=== PATIENT | female | born 1965 | race Caucasian/White ===

== ENCOUNTER 2017-07-22 17:40 | Emergency (ER) | payer BC ==
[~2017-07-22] VITALS: Ht 167.6 cm; Wt 57.0 kg
[2017-07-22 17:56] VITALS: BP 135/84; PULSE 72; RESP 18; TEMP 97.9; O2SAT 100
[2017-07-22 18:02] VITALS: BP 135/84; PULSE 68; RESP 18; O2SAT 100
[2017-07-22] MEDS ORDERED: SODIUM CHLORIDE 0.9% FLUSH 10 ML FLUSH IVF PRN (18:15)
[2017-07-22] MEDS ORDERED: SODIUM CHLORID 0.9% 500 ML INJ 500 ML IV ONE (18:15)
[2017-07-22 18:17] VITALS: O2SAT 100
--- NOTE | 2017-07-22 18:44 | RADRPT ---
EXAM DATE/TIME: 07/22/2017 18:19 [facility] COMPARISON: No previous studies available for comparison. INDICATIONS : Chest pain. MEDICAL HISTORY : None. SURGICAL HISTORY : Defibrillator. ENCOUNTER: Initial ACUITY: 1 day PAIN SCORE: 8/10 LOCATION: Bilateral chest FINDINGS: The heart is at the upper limits of normal in size. There is a transvenous pacer in place. The lungs are clear. The visualized osseous structures are grossly intact. CONCLUSION: 1. Mild cardiomegaly. No acute abnormality. Jose Odonnell MD on July 22, 2017 at 18:42 Board Certified Radiologist. This report was verified electronically.
[2017-07-22 18:51] VITALS: BP_SYST 122; BP_SYST 123; BP_DIAS 70; BP_DIAS 77; PULSE 71; RESP 18; O2SAT 99
[2017-07-22] MEDS ORDERED: ADENOSINE IV SOLN 3 MG/ML 2 ML VIAL ONE (19:23)
[2017-07-22 19:25] VITALS: BP 135/86; PULSE 162; RESP 20; O2SAT 95
[2017-07-22] MEDS ORDERED: LORazepam 2 MG/ML VIAL ONE (19:26)
[2017-07-22 19:27] LABS: AUTOMATED NEUTROPHIL # 2.5 TH/MM3 (1.8-7.7); BASOPHIL % 0.4 % (0.0-2.0); EOSINOPHIL % 1.1 % (0.0-4.0); HEMATOCRIT 39.1 % (35.0-46.0); HEMOGLOBIN 13.2 GM/DL (11.6-15.3); LYMPH % 34.7 % (9.0-44.0); LYMPHOCYTE # 1.5 TH/MM3 (1.0-4.8); MEAN CORPUSCULAR HEMOGLOBIN 32.1 PG (27.0-34.0); MEAN CORPUSCULAR HGB CONC 33.8 % (32.0-36.0); MONO % 6.4 % (0.0-8.0); MONOCYTE # 0.3 TH/MM3 (0-0.9); NEUT % 57.4 % (16.0-70.0); PLATELET COUNT 157 TH/MM3 (150-450); RED BLOOD COUNT 4.11 MIL/MM3 (4.00-5.30); RED CELL DISTRIBUTION WIDTH 13.3 % (11.6-17.2); WHITE BLOOD COUNT 4.4 TH/MM3 (4.0-11.0)
[2017-07-22] MEDS ORDERED: ONDANSETRON HCL 4 MG/2 ML VIAL ONE (19:27)
[2017-07-22] MEDS ORDERED: LORazepam 2 MG/ML VIAL IV PUSH ONE (19:30)
[2017-07-22] MEDS ORDERED: SODIUM CHLOR 0.9% 1000 ML INJ 1,000 ML IV ONE (19:30)
[2017-07-22 19:34] VITALS: BP 133/82; PULSE 76; RESP 16; O2SAT 100
--- NOTE | 2017-07-22 19:39 | PD ---
HPI Chief Complaint: Chest Pain Time Seen by Provider: 18:10 Travel History International Travel<30 days: No Contact w/Intl Traveler<30days: No Traveled to known affect area: No History of Present Illness HPI Patient is a 52-year-old female presenting to the emergency department for evaluation of a near syncopal episode. Patient states that she became lightheaded, dizzy, developed lower left-sided chest pain. She started to feel nauseous and short of breath. She states that a friend helped her into a chair and then her later on the ground. She was unable to lift her head. 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 Patient is currently followed at the [facility]. She currently reports her pain is a 2 out of 10, she was given 324 of aspirin by EMS. Patient states her defibrillator has never fired. She reports daily episodes of V. tach. Patient additionally stated that a JOSÉ MIGUEL in April found a clot on the defibrillator wire, she took blood thinners for 1 month and stated that they would reassess the clot in August. Her defibrillator was last evaluated 1 month ago. Symptom onset is sudden, symptom severity is severe. There are no alleviating factors. There is not appear to be any distinct aggravating factors as well. PFSH Past Medical History Cardiovascular Problems: Yes (hyptrophic cardiomyopathy) Diminished Hearing: No Medical other: Yes (defibrillator-[employer]) ?: Not LMP: today : 3 Para: 3 Social History Alcohol Use: Yes (wine) Tobacco Use: No Substance Use: No Allergies-Medications (Allergen,Severity, Reaction): Coded Allergies: ceftriaxone (Verified Allergy, Intermediate, rash, 07/22/17) Reported Meds & Prescriptions Reported Meds & Active Scripts Active Toprol XL (Metoprolol Succinate) 25 Mg Tab 25 Mg PO DAILY Review of Systems Except as stated in HPI: all other systems reviewed are Neg HENT: Positive: Lightheadedness Cardiovascular: Positive: Palpitations, Tachycardia Respiratory: Positive: Shortness of Breath Gastrointestinal: Positive: Nausea Neurologic: Positive: Dizziness Physical Exam Narrative GENERAL: Well-developed, well-nourished, alert female. Presenting in no acute distress. SKIN: Warm and dry. HEAD: Atraumatic. Normocephalic. EYES: Pupils equal and round. No scleral icterus. No injection or drainage. ENT: No nasal bleeding or discharge. Mucous membranes pink and moist. NECK: Trachea midline. No JVD. CARDIOVASCULAR: Regular rate and rhythm. RESPIRATORY: No accessory muscle use. Clear to auscultation. Breath sounds equal bilaterally. GASTROINTESTINAL: Abdomen soft, non-tender, nondistended. Hepatic and splenic margins not palpable. MUSCULOSKELETAL: Extremities without clubbing, cyanosis, or edema. No obvious deformities. NEUROLOGICAL: Awake and alert. No obvious cranial nerve deficits. Motor grossly within normal limits. Five out of 5 muscle strength in the arms and legs. Normal speech. PSYCHIATRIC: Appropriate mood and affect; insight and judgment normal. Data Data Last Documented VS Vital Signs Date Time Temp Pulse Resp B/P (MAP) Pulse Ox O2 Delivery O2 Flow Rate FiO2 07/22/17 22:16 07/22/17 19:34 76 16 100 Non-Rebreather 12.00 07/22/17 17:56 97.9 Orders Orders Electrocardiogram (07/22/17 18:10) Ckmb (Isoenzyme) Profile (07/22/17 18:10) Complete Blood Count With Diff (07/22/17 18:10) Comprehensive Metabolic Panel (07/22/17 18:10) Magnesium (Mg) (07/22/17 18:10) Prothrombin Time / Inr (Pt) (07/22/17 18:10) Act Partial Throm Time (Ptt) (07/22/17 18:10) Troponin I (07/22/17 18:10) Chest, Single Ap (07/22/17 18:10) Ecg Monitoring (07/22/17 18:10) Bilateral Bp Monitoring (07/22/17 18:10) Iv Access Insert/Monitor (07/22/17 18:10) Oximetry (07/22/17 18:10) Oxygen Administration (07/22/17 18:10) Sodium Chloride 0.9% Flush (Ns Flush) (07/22/17 18:15) Sodium Chlorid 0.9% 500 Ml Inj (Ns 500 M (07/22/17 18:15) Thyroid Stimulating Hormone (07/22/17 18:10) Adenosine Inj (Adenocard Inj) (07/22/17 19:23) Ct Pulmonary Angiogram (07/22/17 ) Lorazepam Inj (Ativan Inj) (07/22/17 19:30) Sodium Chlor 0.9% 1000 Ml Inj (Ns 1000 M (07/22/17 19:30) Lorazepam Inj (Ativan Inj) (07/22/17 19:26) Ondansetron Inj (Zofran Inj) (07/22/17 19:27) Electrocardiogram (07/22/17 19:30) Ed Discharge Order (07/22/17 21:40) Metoprolol Succinate Er (Toprol Xl) (07/22/17 21:45) Iohexol 350 Inj (Omnipaque 350 Inj) (07/22/17 21:58) Labs Laboratory Tests Test 07/22/17 18:40 White Blood Count 4.4 TH/MM3 Red Blood Count 4.11 MIL/MM3 Hemoglobin 13.2 GM/DL Hematocrit 39.1 % Mean Corpuscular Volume 95.0 FL Mean Corpuscular Hemoglobin 32.1 PG Mean Corpuscular Hemoglobin Concent 33.8 % Red Cell Distribution Width 13.3 % Platelet Count 157 TH/MM3 Mean Platelet Volume 10.0 FL Neutrophils (%) (Auto) 57.4 % Lymphocytes (%) (Auto) 34.7 % Monocytes (%) (Auto) 6.4 % Eosinophils (%) (Auto) 1.1 % Basophils (%) (Auto) 0.4 % Neutrophils # (Auto) 2.5 TH/MM3 Lymphocytes # (Auto) 1.5 TH/MM3 Monocytes # (Auto) 0.3 TH/MM3 Eosinophils # (Auto) 0.0 TH/MM3 Basophils # (Auto) 0.0 TH/MM3 CBC Comment DIFF FINAL Differential Comment Prothrombin Time 11.1 SEC Prothromb Time International Ratio 1.1 RATIO Activated Partial Thromboplast Time 23.1 SEC Blood Urea Nitrogen 9 MG/DL Creatinine 0.66 MG/DL Random Glucose 106 MG/DL Total Protein 6.7 GM/DL Albumin 3.8 GM/DL Calcium Level 9.0 MG/DL Magnesium Level 2.0 MG/DL Alkaline Phosphatase 52 U/L Aspartate Amino Transf (AST/SGOT) 19 U/L Alanine Aminotransferase (ALT/SGPT) 19 U/L Total Bilirubin 0.3 MG/DL Sodium Level 142 MEQ/L Potassium Level 3.4 MEQ/L Chloride Level 109 MEQ/L Carbon Dioxide Level 22.8 MEQ/L Anion Gap 10 MEQ/L Estimat Glomerular Filtration Rate 94 ML/MIN Total Creatine Kinase 76 U/L Troponin I 0.08 NG/ML Thyroid Stimulating Hormone 3rd Gen 4.290 uIU/ML MDM Medical Decision Making Medical Screen Exam Complete: Yes Emergency Medical Condition: Yes Interpretation(s) Vital Signs Date Time Temp Pulse Resp B/P (MAP) Pulse Ox O2 Delivery O2 Flow Rate FiO2 07/22/17 18:51 71 18 123/77 (92) 99 Room Air 122/70 (87) 07/22/17 18:17 100 Room Air 07/22/17 18:17 100 Room Air 07/22/17 18:02 68 18 135/84 (101) 100 Room Air 07/22/17 17:56 97.9 72 18 135/84 (101) 100 Differential Diagnosis Cardiac arrhythmia versus metabolic abnormality versus ACS versus other Narrative Course Patient is a 52-year-old female presenting to the emergency room for evaluation after a near syncopal episode likely related to cardiac arrhythmia. Patient has an implanted fibular pacemaker through [employer]. Theatrical Trouper was called to interrogate. Labs and imaging ordered and pending. Initial EKG shows normal sinus rhythm with left ventricular hypertrophy/strain this was reviewed by my attending physician. 1919 patient began to have rapid heart rate into the 170s, EKG was performed, my attending physician as well as myself was at bedside. Heart rate trended down on its own without pharmacological intervention. Patient was given 1 L of IV fluids, milligram of Ativan. CT pulmonary angiogram ordered. Please see my attending physician's documentation for complete plan of care for patient. He assumed care of this patient, he spoke with patient's police officer booking at the [facility]. Scripts Metoprolol Succinate ER 24 HR (Toprol XL) 25 Mg Tab 25 MG PO DAILY, #30 TAB 0 Refills Prov: Juan Escobedo MD 07/22/17 Anastacia Rene Jul 22, 2017 19:39
[2017-07-22 19:52] LABS: INTERNATIONAL NORMALIZED RATIO 1.1 RATIO; PROTHROMBIN TIME - PATIENT 11.1 SEC (9.8-11.6)
[2017-07-22 19:56] LABS: ALBUMIN 3.8 GM/DL (3.4-5.0); AST (GOT) 19 U/L (15-37); BICARBONATE 22.8 MEQ/L (21.0-32.0); BLOOD UREA NITROGEN 9 MG/DL (7-18); CHLORIDE 109 MEQ/L (98-107); CREATININE 0.66 MG/DL (0.50-1.00); GLOMERULAR FILTRATION RATE 94 ML/MIN (>89); GLUCOSE,RANDOM 106 MG/DL (74-106); SODIUM (NA) 142 MEQ/L (136-145)
[2017-07-22 19:58] LABS: ALT (GPT) 19 U/L (10-53)
[2017-07-22 20:08] LABS: ALKALINE PHOSPHATASE 52 U/L (45-117); TOTAL BILIRUBIN ADULT 0.3 MG/DL (0.2-1.0); TOTAL PROTEIN 6.7 GM/DL (6.4-8.2); TROPONIN I 0.08 NG/ML (0.02-0.05)
[2017-07-22] MEDS ORDERED: TOPR25TA PO (21:44)
--- NOTE | 2017-07-22 21:44 | PD ---
Data Data Last Documented VS Vital Signs Date Time Temp Pulse Resp B/P (MAP) Pulse Ox O2 Delivery O2 Flow Rate FiO2 07/22/17 22:16 07/22/17 19:34 76 16 100 Non-Rebreather 12.00 07/22/17 17:56 97.9 Orders Orders Electrocardiogram (07/22/17 18:10) Ckmb (Isoenzyme) Profile (07/22/17 18:10) Complete Blood Count With Diff (07/22/17 18:10) Comprehensive Metabolic Panel (07/22/17 18:10) Magnesium (Mg) (07/22/17 18:10) Prothrombin Time / Inr (Pt) (07/22/17 18:10) Act Partial Throm Time (Ptt) (07/22/17 18:10) Troponin I (07/22/17 18:10) Chest, Single Ap (07/22/17 18:10) Ecg Monitoring (07/22/17 18:10) Bilateral Bp Monitoring (07/22/17 18:10) Iv Access Insert/Monitor (07/22/17 18:10) Oximetry (07/22/17 18:10) Oxygen Administration (07/22/17 18:10) Sodium Chloride 0.9% Flush (Ns Flush) (07/22/17 18:15) Sodium Chlorid 0.9% 500 Ml Inj (Ns 500 M (07/22/17 18:15) Thyroid Stimulating Hormone (07/22/17 18:10) Adenosine Inj (Adenocard Inj) (07/22/17 19:23) Ct Pulmonary Angiogram (07/22/17 ) Lorazepam Inj (Ativan Inj) (07/22/17 19:30) Sodium Chlor 0.9% 1000 Ml Inj (Ns 1000 M (07/22/17 19:30) Lorazepam Inj (Ativan Inj) (07/22/17 19:26) Ondansetron Inj (Zofran Inj) (07/22/17 19:27) Electrocardiogram (07/22/17 19:30) Ed Discharge Order (07/22/17 21:40) Metoprolol Succinate Er (Toprol Xl) (07/22/17 21:45) Iohexol 350 Inj (Omnipaque 350 Inj) (07/22/17 21:58) Labs Laboratory Tests Test 07/22/17 18:40 White Blood Count 4.4 TH/MM3 Red Blood Count 4.11 MIL/MM3 Hemoglobin 13.2 GM/DL Hematocrit 39.1 % Mean Corpuscular Volume 95.0 FL Mean Corpuscular Hemoglobin 32.1 PG Mean Corpuscular Hemoglobin Concent 33.8 % Red Cell Distribution Width 13.3 % Platelet Count 157 TH/MM3 Mean Platelet Volume 10.0 FL Neutrophils (%) (Auto) 57.4 % Lymphocytes (%) (Auto) 34.7 % Monocytes (%) (Auto) 6.4 % Eosinophils (%) (Auto) 1.1 % Basophils (%) (Auto) 0.4 % Neutrophils # (Auto) 2.5 TH/MM3 Lymphocytes # (Auto) 1.5 TH/MM3 Monocytes # (Auto) 0.3 TH/MM3 Eosinophils # (Auto) 0.0 TH/MM3 Basophils # (Auto) 0.0 TH/MM3 CBC Comment DIFF FINAL Differential Comment Prothrombin Time 11.1 SEC Prothromb Time International Ratio 1.1 RATIO Activated Partial Thromboplast Time 23.1 SEC Blood Urea Nitrogen 9 MG/DL Creatinine 0.66 MG/DL Random Glucose 106 MG/DL Total Protein 6.7 GM/DL Albumin 3.8 GM/DL Calcium Level 9.0 MG/DL Magnesium Level 2.0 MG/DL Alkaline Phosphatase 52 U/L Aspartate Amino Transf (AST/SGOT) 19 U/L Alanine Aminotransferase (ALT/SGPT) 19 U/L Total Bilirubin 0.3 MG/DL Sodium Level 142 MEQ/L Potassium Level 3.4 MEQ/L Chloride Level 109 MEQ/L Carbon Dioxide Level 22.8 MEQ/L Anion Gap 10 MEQ/L Estimat Glomerular Filtration Rate 94 ML/MIN Total Creatine Kinase 76 U/L Troponin I 0.08 NG/ML Thyroid Stimulating Hormone 3rd Gen 4.290 uIU/ML [facility] Supervised Visit with MABLE: Yes Narrative Course Patient had an episode in the emergency department where I watched her heart rate gradually climb from 80 up to 170, she was very anxious during this time and felt like she was going to pass out. Her blood pressure was acceptable at 130/80 while her heart rate was in the 170s. An EKG was performed unfortunately was misplaced and found again which did show that she was in sinus tachycardia. After her pacemaker was interrogated actually showed that she was in slow V. tach at 140 beats minute exactly time with this EKG was done. Quite possible that she has 2 components of arrhythmia both ventricular tachycardia and a sinus tachycardia/SVT. Her troponin is weakly positive and she has a history of congenital cardiomyopathy. The patient's event corrected with normal saline and Ativan, her entire case was discussed with her rock splitter Dr. Kirkpatrick at [facility]. I discussed that she has T-wave inversions in V4 through V6 as well as is minimally positive troponin and he states that likely this is all chronic from her. She has not had any chest pain at rest, she is feeling much better. All things considered and ask after an extensive conversation with Dr. Kirkpatrick he is recommended that the patient be started on a Toprol XL 25 mg daily and and follow-up in their clinic next week. The patient is highly amenable to this. The patient did just recently drive down from [place] this is a fairly short car ride and the patient has not had any shortness of breath she has no leg swelling. I think it is very unlikely that she has any pulmonary embolism. Still a ct PE protocol was ordered and is negative. Diagnosis Primary Impression: SVT (supraventricular tachycardia) Additional Impression: Pre-syncope Med/Other Pt SpecificInfo: Prescription(s) given Scripts Metoprolol Succinate ER 24 HR (Toprol XL) 25 Mg Tab 25 MG PO DAILY, #30 TAB 0 Refills Prov: Juan Escobedo MD 07/22/17 Disposition: 01 DISCHARGE HOME Condition: Stable Juan Escobedo MD Jul 22, 2017 21:44
[2017-07-22] MEDS ORDERED: METOPROLOL SUCCINATE 25 MG EXTENDED RELEASE TAB PO ONE (21:45)
[2017-07-22] MEDS ORDERED: IOHEXOL 350 MG/ML 10 ML VIAL (for RAD DIAG) IVCONTRAST ONE (21:58)
--- NOTE | 2017-07-22 22:09 | RADRPT ---
EXAM DATE/TIME: 07/22/2017 21:50 [facility] COMPARISON: No previous studies available for comparison. INDICATIONS : Syncopal episode. IV CONTRAST: 65 cc Omnipaque 350 (iohexol) IV RADIATION DOSE: 7.98 CTDIvol (mGy) MEDICAL HISTORY : Cardiovascular disease. SURGICAL HISTORY : Defibrillator. ENCOUNTER: Initial ACUITY: 1 day PAIN SCALE: 0/10 LOCATION: chest TECHNIQUE: Volumetric scanning of the chest was performed using a pulmonary embolism protocol MIP images were re constructed. Using automated exposure control and adjustment of the mA and/or kV according to patien t size, radiation dose was kept as low as reasonably achievable to obtain optimal diagnostic quality images. DICOM format image data is available electronically for review and comparison. Follow-up recommendations for detected pulmonary nodules are based at a minimum on nodule size and pa tient risk factors according to Fleischner Society Guidelines. FINDINGS: PULMONARY ARTERIES: No filling defects are seen in the pulmonary arteries through the segmental level. LUNGS: There is no consolidation or pneumothorax . No concerning pulmonary nodule is visualized. PLEURAE: There is no pleural thickening or pleural effusion. MEDIASTINUM: There is good visualization of the great vessels of the middle mediastinum. No evidence of mediastin al or hilar adenopathy/mass. MUSCULOSKELETAL: Within normal limits for patient age. MISCELLANEOUS: The visualized upper abdominal organs demonstrate no acute abnormality. CONCLUSION: 1. Negative examination. Jose Odonnell MD on July 22, 2017 at 22:04 Board Certified Radiologist. This report was verified electronically.
--- NOTE | 2017-07-23 13:15 | EKG ---
Date Performed: 07/22/2017 Time Performed: 18:02:18 PTAGE: 52 years EKG: Sinus rhythm WITH SHORT [place] INTERVAL LEFT VENTRICULAR HYPERTROPHY AND ST-T CHANGE ABNORMAL ECG NO PREVIOUS TRACING DOCTOR: Maximus Cook Interpretating Date/Time 07/23/2017 13:14:38
--- NOTE | 2017-07-23 13:16 | EKG ---
Date Performed: 07/22/2017 Time Performed: 19:30:47 PTAGE: 52 years EKG: Sinus rhythm POSSIBLE LEFT ATRIAL ENLARGEMENT ST DEVIATION AND MODERATE T-WAVE ABNORMALITY, CONSIDER LATERAL ISCH EMIA Short MT interval Since previous tracing, no significant change noted ABNORMAL ECG PREVIOUS TRACING : 07/22/2017 18.02 DOCTOR: Maximus Cook Interpretating Date/Time 07/23/2017 13:15:03
== END 2017-07-22 23:34 | disposition home or self-care (01) ==
LOC: NEPC 17:40
DX: I47.1 Supraventricular tachycardia (principal); R55 Syncope and collapse; R94.31 Abnormal electrocardiogram [ECG] [EKG]; I42.2 Other hypertrophic cardiomyopathy; Z95.810 Presence of automatic (implantable) cardiac defibrillator
CPT/HCPCS: 71045; 71275; 80053; 82550; 83735; 84443; 84484; 85025; 85610; 85730; 93005; 96361; 96374; 96375; 99285; J0153; J2060; J2405; J7030; J7040; Q9967